=== PATIENT | female | born 1980 | race Two or more races ===

== ENCOUNTER 2022-03-01 20:29 | Emergency (ER) | payer OTHER ==
[~2022-03-01] VITALS: Ht 170.2 cm; Wt 70.3 kg
== END 2022-03-02 00:42 | disposition home or self-care (01) ==
LOC: ER 20:29
DX: R56.9 Unspecified convulsions (principal); Z88.8 Allergy status to other drugs, medicaments and biological substances

== ENCOUNTER → 2022-03-01 | Emergency (ER) | payer OTHER ==
[~2022-03-01] VITALS: Ht 170.2 cm; Wt 64.4 kg
[~2022-03-01] MED LIST: GABAPENTIN800 M1; HYDROXYZINE HCL10 MG
== END | disposition left against medical advice (07) ==
LOC: ER 19:35
DX: R56.9 Unspecified convulsions (principal); Z88.8 Allergy status to other drugs, medicaments and biological substances

== ENCOUNTER 2022-03-10 23:07 | Emergency (ER) | payer OTHER ==
[~2022-03-10] VITALS: Ht 170.2 cm; Wt 65.8 kg
[2022-03-11] MEDS ORDERED: KETO10TA2 PO (07:49)
== END 2022-03-11 13:05 ==
LOC: ER 23:07
DX: S80.01XA Contusion of right knee, initial encounter (principal); W19.XXXA Unspecified fall, initial encounter; Y93.9 Activity, unspecified; Y92.9 Unspecified place or not applicable; Y99.9 Unspecified external cause status; S50.02XA Contusion of left elbow, initial encounter; R42 Dizziness and giddiness; Z88.8 Allergy status to other drugs, medicaments and biological substances

== ENCOUNTER 2022-03-17 16:26 | Emergency (ER) | payer OTHER ==
[~2022-03-17] VITALS: Ht 175.3 cm; Wt 70.8 kg
[~2022-03-17 16:26] MED LIST changes: +KETO10TA2 PO
== END 2022-03-18 14:15 | disposition home or self-care (01) ==
LOC: ER 16:26
DX: M79.604 Pain in right leg (principal); I82.4Z1 Acute embolism and thrombosis of unspecified deep veins of right distal lower extremity; Z88.8 Allergy status to other drugs, medicaments and biological substances